=== PATIENT | male | born 1925 | race Caucasian/White ===

== ENCOUNTER → 2017-03-11 | Outpatient (CLI) | payer OTHER, BC ==
[~2017-03-11] MED LIST: ATEN50TA PO; BISA-16 PO; DIPH25CA5 PO; FINA5TAB4 PO; FLM4 PO; FURO-85 PO; LDXCR60 EXT; LOSA1TAB PO; METO25TA56 PO; MRLP527 PO; NRV5 PO; POTA10CA28 PO; PRS5 PO; RIVA1TAB4 PO; SIMV-151 PO; SIMV20TA5 PO; TAMS0.4C59 PO; TNR25 PO; TNR50 PO
--- NOTE | 2017-03-11 14:14 | DIAGNOSTIC IMAGING REPORT ---
ULTRASOUND OF THE CAROTID ARTERIES CLINICAL HISTORY: Carotid bruit. COMPARISON STUDY: Carotid artery ultrasound dated 05/09/2012. TECHNIQUE: Real-time, grayscale, and color Doppler sonography of the carotid arteries is performed. Images are reviewed in the transverse and longitudinal planes. FINDINGS: Blood pressure in the right arm measures 193/94 and blood pressure in the left arm measures 188/93. The carotid arteries are patent bilaterally and demonstrate antegrade flow. There is mild to moderate echogenic shadowing atherosclerotic plaque seen bilaterally. Normal doppler arterial waveforms are seen throughout. Velocity measurements are listed below. Common carotid peak systolic velocity (cm/sec): RIGHT: 52 LEFT: 41 ICA proximal peak systolic velocity (cm/sec): RIGHT: 60 LEFT: 72 ICA mid peak systolic velocity (cm/sec): RIGHT: 45 LEFT: 61 ICA distal peak systolic velocity (cm/sec): RIGHT: 57 LEFT: 117 ICA/CC peak systolic ratio: RIGHT: 1.2 LEFT: 2.9 Antegrade flow was shown in the vertebral arteries. The external carotid arteries are patent. IMPRESSION: 1. Atherosclerotic plaque with no sonographic evidence of hemodynamically significant stenosis in the right or left carotid arterial system. 2. Antegrade flow is shown in the vertebral arteries. 3. Hypertension as documented above. Electronically signed by: Randy Lemus M.D. 03/11/2017 2:13 PM Dictated Date/Time: 03/11/2017 2:11 PM
== END | disposition home or self-care (01) ==
LOC: C.ULTR 12:42
PROVIDERS: ATTEND Internal Medicine
DX: R09.89 Other specified symptoms and signs involving the circulatory and respiratory systems (principal); R42 Dizziness and giddiness; I10 Essential (primary) hypertension

== ENCOUNTER → 2017-05-09 | Outpatient (CLI) | payer OTHER, BC ==
[~2017-05-09] MED LIST changes: -DIPH25CA5 PO; -FURO-85 PO; -LDXCR60 EXT; -LOSA1TAB PO; -METO25TA56 PO; -POTA10CA28 PO; -TNR25 PO
[2017-05-09 12:17] LABS: BASO % 0.7 %; BASO ABS # 0.04 K/uL (0-0.2); COMPLETE YES; EOS % 2.2 %; HEMATOCRIT 49.6 % (42-52); IG% 0.2 %; LYMPH % 14.6 %; LYMPH ABS # 0.86 K/uL (1.2-3.4); MEAN CELL VOLUME 96.3 fL (80-100); MEAN CORPUSCULAR HEMOGLOBIN 32.8 pg (25-34); MEAN CORPUSCULAR HGB CONC 34.1 g/dl (32-36); MEAN PLATELET VOLUME 10.9 fL (7.4-10.4); MONO % 12.5 %; NEUT % 69.8 %; PLATELET COUNT 107 K/uL (130-400); RED BLOOD COUNT 5.15 M/uL (4.7-6.1); WHITE BLOOD COUNT 5.91 K/uL (4.8-10.8)
[2017-05-09 12:22] LABS: ESTIMATED AVERAGE GLUCOSE 114 mg/dl; HA1C FLAG Normal (Normal)
[2017-05-09 12:33] LABS: ALB/GLOB RATIO 1.1 (0.9-2); ALKALINE PHOSPHATASE 85 U/L (45-117); BLOOD UREA NITROGEN 21 mg/dl (7-18); BUN/CREATININE RATIO 17.2 (10-20); CALCIUM 9.7 mg/dl (8.5-10.1); CARBON DIOXIDE 25 mmol/L (21-32); CHLORIDE 109 mmol/L (98-107); GLUCOSE 109 mg/dl (70-99); HDL CHOLESTEROL 42 mg/dl; POTASSIUM 4.5 mmol/L (3.5-5.1); SODIUM 140 mmol/L (136-145)
[2017-05-09 12:35] LABS: ALT/SGPT 45 U/L (12-78); AST/SGOT 21 U/L (15-37); CHOLESTEROL 116 mg/dl (0-200); CHOLESTEROL/HDL RATIO 2.8; TRIGLYCERIDES 75 mg/dl (0-150); VERY LOW DENSITY LIPOPROT CALC 15 mg/dl
== END | disposition home or self-care (01) ==
LOC: C.LABSPEC 12:04
PROVIDERS: ATTEND Internal Medicine
DX: I25.10 Atherosclerotic heart disease of native coronary artery without angina pectoris (principal); E78.5 Hyperlipidemia, unspecified; R73.9 Hyperglycemia, unspecified

== ENCOUNTER 2017-05-21 14:28 | Inpatient (IN) | payer OTHER, BC ==
[~2017-05-21] VITALS: Ht 172.7 cm; Wt 66.8 kg
[~2017-05-21 14:28] MED LIST changes: -FLM4 PO; -MRLP527 PO; -NRV5 PO; -PRS5 PO; -RIVA1TAB4 PO; -SIMV-151 PO; -TNR50 PO
--- NOTE | 2017-05-21 15:09 | DIAGNOSTIC IMAGING REPORT ---
CHEST ONE VIEW PORTABLE HISTORY: EVALUATE RESPIRATORY DISTRESS.DYSPNEA COMPARISON: Chest 05/14/2014. FINDINGS: The patient is slightly rotated. No pneumothorax. The heart remains mildly enlarged. There are poststernotomy changes. Patchy bibasilar densities with mild perihilar vascular prominence. No definite pleural effusions. IMPRESSION: Patchy bibasilar densities with perihilar vascular prominence. This could be due to a bibasilar pneumonia or developing pulmonary edema. Electronically signed by: Robbie Gonzalez M.D. 05/21/2017 3:07 PM Dictated Date/Time: 05/21/2017 3:06 PM
[2017-05-21] MEDS ORDERED: MRLP527 PO (15:26)
[2017-05-21] MEDS ORDERED: FLM4 PO (15:26)
[2017-05-21] MEDS ORDERED: SIMV-151 PO (15:26)
[2017-05-21] MEDS ORDERED: PRS5 PO (15:26)
[2017-05-21] MEDS ORDERED: TNR50 PO (15:26)
[2017-05-21 15:33] LABS: BASO % 0.7 %; BASO ABS # 0.04 K/uL (0-0.2); COMPLETE YES; EOS % 2.4 %; HEMATOCRIT 51.5 % (42-52); IG% 0.2 %; LYMPH % 18.6 %; MEAN CELL VOLUME 97.2 fL (80-100); MEAN PLATELET VOLUME 10.7 fL (7.4-10.4); MONO % 9.5 %; NEUT % 68.6 %; PLATELET COUNT 104 K/uL (130-400); WHITE BLOOD COUNT 5.91 K/uL (4.8-10.8)
[2017-05-21 15:54] LABS: ALT/SGPT 75 U/L (12-78); AST/SGOT 37 U/L (15-37); BLOOD UREA NITROGEN 19 mg/dl (7-18); BUN/CREATININE RATIO 16.9 (10-20); CARBON DIOXIDE 28 mmol/L (21-32); CHLORIDE 109 mmol/L (98-107); GLUCOSE 110 mg/dl (70-99); POTASSIUM 4.7 mmol/L (3.5-5.1); SODIUM 140 mmol/L (136-145)
[2017-05-21 15:59] LABS: ALB/GLOB RATIO 1.2 (0.9-2); ALKALINE PHOSPHATASE 91 U/L (45-117); CKMB/CK RATIO 3.2 (0-3.0)
[2017-05-21] MEDS ORDERED: ATROPINE SULFATE 0.1 MG/ML 5ML SYR ONE (16:02)
[2017-05-21 16:16] LABS: MAGNESIUM 2.3 mg/dl (1.8-2.4)
[2017-05-21] MEDS ORDERED: ACETAMINOPHEN 325 MG TAB PO PRN (17:00)
[2017-05-21] MEDS ORDERED: ATROPINE SO4 1 MG/ML 1ML VIAL IM PRN (17:00)
--- NOTE | 2017-05-21 17:13 | EMERGENCY ROOM VISIT NOTE ---
History Report prepared by Ollie: Madhu Frazier Under the Supervision of: Dr. Robin Davila M.D. First contact with patient: 14:50 Chief Complaint: SHORTNESS OF BREATH Stated Complaint: SHORTNESS OF BREATH, NOT SLEEPING WELL Nursing Triage Summary: triage note: pt reports "i can't get enough air." pt denies any pain. pt reports shortness of breath x 1 week. History of Present Illness The patient is a 89 year old male who presents to the Emergency Room with complaints of shortness of breath that began 1 week ago. He states that he feels as if he cannot get enough air into his lungs. The patient's shortness of breath worsens with exertion. He notes that he has not been sleeping very well as of late. He has chronic left leg swelling that is at baseline. He has been having occasional diarrhea as well. Pt denies LOC, headache, fevers, chills, diaphoresis, visual changes, neck pain, chest pain, nausea, vomiting, abdominal pain, back pain, melena, hematochezia, urinary symptoms, numbness, weakness, lymphadenopathy, rash, or other complaints. He denies any Lasix use. He has a history of chronic coronary artery disease and a resolved CABG procedure. Source of History: patient Onset: 1 week ago Position: other (Respiratory System) Symptom Intensity: moderate Quality: other (Shortness of breath) Timing: worsening Modifying Factors (Worsening): exertion Associated Symptoms: + diarrhea Review of Systems See HPI for pertinent positives and negatives. A total of ten systems were reviewed and were otherwise negative. Past Medical & Surgical Medical Problems: (1) CAD (coronary artery disease) (2) Hypertension Nos (3) PROFOUND BRADYCARDIA,ATRIAL FLUTTER, CAD (4) Pure Hypercholesterolem (5) Unilat Inguinal Hernia Surgical Problems: (1) Hx of CABG Family History Omitted secondary to age. Social History Smoking Status: Never Smoker Smokeless Tobacco Use: No Alcohol Use: none Drug Use: none Marital Status: Housing Status: lives alone Occupation Status: retired Current/Historical Medications Scheduled Atenolol (Atenolol), 50 MG PO QAM Finasteride (Finasteride), 5 MG PO QAM Simvastatin (Simvastatin), 20 MG PO QPM Tamsulosin HCl (Tamsulosin HCl), 0.4 MG PO QAM Scheduled PRN Polyethylene (Polyethylene Glycol 3350), 17 GM PO DAILY PRN for Constipation Allergies Coded Allergies: No Known Allergies (Verified , 05/14/14) Physical Exam Vital Signs Date Time Temp Pulse Resp B/P (MAP) Pulse Ox O2 Delivery O2 Flow Rate FiO2 05/21/17 16:37 39 18 98/54 96 Room Air 05/21/17 15:53 39 12 95 05/21/17 15:48 38 15 97 05/21/17 15:43 40 15 97 05/21/17 15:39 38 05/21/17 15:38 54 17 93 05/21/17 15:35 94 Room Air 05/21/17 15:35 94 Room Air 05/21/17 15:33 62 94 05/21/17 15:28 41 15 98 05/21/17 14:34 97 Room Air 05/21/17 14:33 36.7 89 22 206/82 97 Room Air Physical Exam GENERAL: Awake, alert, tired appearing, in no distress HENT: Normocephalic, atraumatic. Oropharynx unremarkable. EYES: Normal conjunctiva. Sclera non-icteric. NECK: Supple. No nuchal rigidity. FROM. No JVD. RESPIRATORY: Clear to auscultation. CARDIAC: Bradycardic rate, normal rhythm. Extremities warm and well perfused. Pulses equal. ABDOMEN: Soft, non-distended. No tenderness to palpation. No rebound or guarding. No masses. RECTAL: Deferred. MUSCULOSKELETAL: Chest examination reveals no tenderness. The back is symmetrical on inspection without obvious abnormality. There is no CVA tenderness to palpation. No joint edema. LOWER EXTREMITIES: 2+ left leg edema. 1+ right leg edema. Left greater than right. No discoloration. NEURO: Normal sensorium. No sensory or motor deficits noted. SKIN: No rash or jaundice noted. Medical Decision & Procedures ER Provider Diagnostic Interpretation: Radiology results as stated below per my review and radiologist interpretation: CHEST ONE VIEW PORTABLE HISTORY: EVALUATE RESPIRATORY DISTRESS.DYSPNEA COMPARISON: Chest 05/14/2014. FINDINGS: The patient is slightly rotated. No pneumothorax. The heart remains mildly enlarged. There are poststernotomy changes. Patchy bibasilar densities with mild perihilar vascular prominence. No definite pleural effusions. IMPRESSION: Patchy bibasilar densities with perihilar vascular prominence. This could be due to a bibasilar pneumonia or developing pulmonary edema. Electronically signed by: Robbie Gonzalez M.D. 05/21/2017 3:07 PM Dictated Date/Time: 05/21/2017 3:06 PM Laboratory Results 05/21/17 15:05 Red Blood Count 5.30, Mean Corpuscular Volume 97.2, Mean Corpuscular Hemoglobin 33.0, Mean Corpuscular Hemoglobin Concent 34.0, Mean Platelet Volume 10.7, Neutrophils (%) (Auto) 68.6, Lymphocytes (%) (Auto) 18.6, Monocytes (%) (Auto) 9.5, Eosinophils (%) (Auto) 2.4, Basophils (%) (Auto) 0.7, Neutrophils # (Auto) 4.06, Lymphocytes # (Auto) 1.10, Monocytes # (Auto) 0.56, Eosinophils # (Auto) 0.14, Basophils # (Auto) 0.04 05/21/17 15:05 Test 05/21/17 15:05 05/21/17 15:27 05/21/17 16:52 05/21/17 16:58 White Blood Count 5.91 K/uL (4.8-10.8) Red Blood Count 5.30 M/uL (4.7-6.1) Hemoglobin 17.5 g/dL (14.0-18.0) Hematocrit 51.5 % (42-52) Mean Corpuscular Volume 97.2 fL (80-100) Mean Corpuscular Hemoglobin 33.0 pg (25-34) Mean Corpuscular Hemoglobin Concent 34.0 g/dl (32-36) Platelet Count 104 K/uL (130-400) Mean Platelet Volume 10.7 fL (7.4-10.4) Neutrophils (%) (Auto) 68.6 % Lymphocytes (%) (Auto) 18.6 % Monocytes (%) (Auto) 9.5 % Eosinophils (%) (Auto) 2.4 % Basophils (%) (Auto) 0.7 % Neutrophils # (Auto) 4.06 K/uL (1.4-6.5) Lymphocytes # (Auto) 1.10 K/uL (1.2-3.4) Monocytes # (Auto) 0.56 K/uL (0.11-0.59) Eosinophils # (Auto) 0.14 K/uL (0-0.5) Basophils # (Auto) 0.04 K/uL (0-0.2) RDW Standard Deviation 47.5 fL (36.4-46.3) RDW Coefficient of Variation 13.4 % (11.5-14.5) Immature Granulocyte % (Auto) 0.2 % Immature Granulocyte # (Auto) 0.01 K/uL (0.00-0.02) Anion Gap 3.0 mmol/L (3-11) Est Creatinine Clear Calc Drug Dose 44.0 ml/min Estimated GFR () 68.6 Estimated GFR (Non- 59.2 BUN/Creatinine Ratio 16.9 (10-20) Calcium Level 10.0 mg/dl (8.5-10.1) Magnesium Level 2.3 mg/dl (1.8-2.4) Total Bilirubin 1.1 mg/dl (0.2-1) Aspartate Amino Transf (AST/SGOT) 37 U/L (15-37) Alanine Aminotransferase (ALT/SGPT) 75 U/L (12-78) Alkaline Phosphatase 91 U/L (45-117) Total Creatine Kinase 41 U/L (39-308) Creatine Kinase MB 1.3 ng/ml (0.5-3.6) Creatine Kinase MB Ratio 3.2 (0-3.0) Troponin I < 0.015 ng/ml (0-0.045) Pro-B-Type Natriuretic Peptide 3793 pg/ml (0-1800) Total Protein 7.2 gm/dl (6.4-8.2) Albumin 3.9 gm/dl (3.4-5.0) Globulin 3.3 gm/dl (2.5-4.0) Albumin/Globulin Ratio 1.2 (0.9-2) Bedside Lactic Acid Venous 0.85 mmol/L (0.90-1.70) Activated Partial Thromboplast Time 26.0 SECONDS (21.0-31.0) Partial Thromboplastin Ratio 1.0 Laboratory results reviewed by me ECG Indication: SOB/dyspnea Rate (beats per minute): 37 Rhythm: atrial flutter, other (Profound Bradycardia) Findings: no acute ischemic change, other (Variable block) Comparison ECG Date: 07 Aug 2012 Change: Atrial flutter is new. ED Course 1450: The patient was evaluated in room C1. A complete history and physical exam was performed. 1555: Upon reexamination, the patient was resting. I discussed the test results and treatment plan with him. The patient will be evaluated by Dr. Dain Coppola, for further management. He has already spoken with Cardiology about the patient. 1602: Ordered Atropine Sulfate 0.5 mg .ROUTE 1635: I spoke with Dr. Pfeiffer - Cardiology, about the patient's case at this time. Medical Decision Triage Nursing notes reviewed. The patient's presentation and history were concerning for SOB. Etiologies such as pneumonia, COPD, reactive airway disease, CHF, cardiac ischemia, pulmonary embolism, pneumothorax, musculoskeletal, infections, gastrointestinal, as well as others were entertained. The patient was evaluated. Physical examination he was found to be profoundly bradycardic. ECG was performed he was in new onset A. fib flutter with slow response and variable block. His CBC, chemistry panel, cardiac markers and magnesium were unremarkable. His BNP was elevated. Chest x-ray did show some pulmonary edema. A pads are placed. The patient was hemodynamically tolerating the bradycardia very well. I did discuss case with his primary physician, Dr. Jonh Yeh. He had already consulted with cardiology, Dr. Pfeiffer. I did discuss the case with Dr. Pfeiffer and Dr. Jonh Yeh in the emergency department. The patient will be admitted for further management. Medication Reconcilliation Current Medication List: was personally reviewed by me Blood Pressure Screening Patient's blood pressure: Elevated blood pressure Blood pressure disposition: Referred to PCP Consults Time Called: 1550 Consulting Physician: Dr. Dain Coppola Returned Call: 1555 Discussed the patient's case. The patient will be evaluated for further treatment and disposition. Additional Consults: Time Called: 1630 Consulted Physician: Dr. Kentrell Mckeon Returned Call: 1635 Additional Comments: We discussed the patient's case at this time. Impression Primary Impression: New onset atrial flutter Additional Impressions: Bradycardia SOB (shortness of breath) Scribe Attestation The scribe's documentation has been prepared under my direction and personally reviewed by me in its entirety. I confirm that the note above accurately reflects all work, treatment, procedures, and medical decision making performed by me. Departure Information Dispostion Being Evaluated By Hospitalist Referrals Jonh Gonzalez M.D. (PCP) Patient Instructions My [facility] Problem Qualifiers
--- NOTE | 2017-05-21 17:14 | Cardiology Consultation ---
Cardiology Consultation Date of Consultation: May 21, 2017. Requesting Physician: Yolanda Reason for Consultation: bradycardia Pt evaluation today including: conversation w/ patient, conversation w/ family , physical exam, chart review, lab review, review of studies, review of inpatient medication list, conversation w/ attending History of Present Illness The patient is an 89-year-old gentleman with a history of coronary artery disease who reports approximately 2 weeks worth of progressive dyspnea. He states initially this was fairly mild and exertional in nature but later became more severe and present at rest. In fact for the past 2 nights the patient states that he has had difficulty sleeping due to breathing trouble. He has had to sit upright or walk around due to breathing difficulty. He has had some episodes of mild dizziness. He has a fairly transient and not severe. He has not felt presyncopal. He has not suffered a syncopal episode. He has not been aware of any rapid pulse. He has not been aware of any palpitations. He denies any symptoms of chest discomfort. He has some chronic lower extremity edema which he does not feel is worse recently. He has not report any significant dietary indiscretion or change in diet. He has not noticed any significant weight gain. In general he is an active individual who lives alone. He is able perform routine activity without significant limitation. Denies any other recent constitutional symptoms such as fevers or chills. Did not report a cough. He states he has been eating normally. He did not report any change in his bowel or bladder habits. He has not reported any melena or blood in his stool. Based on the progressive in more severe nature of his symptoms the patient presented to his primary care physician's office today where he he was directed to the [facility] Emergency Room. There he was discovered to have significant bradycardia and atrial flutter. Past Medical/Surgical History Coronary artery disease Benign prostatic hypertrophy Hard of hearing Past surgical history Coronary artery bypass grafting in [address] [facility]. 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 He has remote history of tobacco use. He occasionally smokes a cigar. He currently lives alone and independently. Review of Systems Constitutional: + see HPI Respiratory: + see HPI Cardiac: + see HPI Abdomen: + see HPI Male : + see HPI Neurologic: + see HPI Heme: + see HPI Endo: + see HPI Skin: + see HPI All Other Systems: Reviewed and Negative Allergies Coded Allergies: No Known Allergies (Verified , 05/14/14) Medications Current Inpatient Medications Medications (Trade) Dose Ordered Sig/Vonda Route Start Time Stop Time Status Last Admin Dose Admin Heparin Sodium (Porcine) (Heparin Sq 5000 Unit/0.5ml) 5,000 unit Q12 SQ 05/21/17 21:00 06/20/17 20:59 UNV Acetaminophen (Tylenol Tab) 650 mg Q4H PRN PO 05/21/17 17:00 06/20/17 16:59 UNV Finasteride (Proscar Tab) 5 mg QAM PO 05/22/17 09:00 06/21/17 08:59 UNV Simvastatin (Zocor Tab) 20 mg QPM PO 05/21/17 21:00 06/20/17 20:59 UNV Tamsulosin HCl (Flomax Cap) 0.4 mg QAM PO 05/22/17 09:00 06/21/17 08:59 UNV Atropine Sulfate (Atropine Sulfate 1MG/Ml Inj) 1 mg PRN PRN IM 05/21/17 17:00 06/20/17 16:59 UNV Physical Exam Vital Signs Past 12 Hours Date Time Temp Pulse Resp B/P (MAP) Pulse Ox O2 Delivery O2 Flow Rate FiO2 05/21/17 16:37 39 18 98/54 96 Room Air 05/21/17 15:53 39 12 95 05/21/17 15:48 38 15 97 05/21/17 15:43 40 15 97 05/21/17 15:39 38 05/21/17 15:38 54 17 93 05/21/17 15:35 94 Room Air 05/21/17 15:35 94 Room Air 05/21/17 15:33 62 94 05/21/17 15:28 41 15 98 05/21/17 14:34 97 Room Air 05/21/17 14:33 36.7 89 22 206/82 97 Room Air The patient is alert and oriented. Mood and affect appeared normal. He answered all questions appropriately. He was hard of hearing. Some supplemental history was provided by his daughter who was present for the interview. HEENT: Pupils are equal and reactive to light and accommodation. Extraocular movements are intact. The sclerae are anicteric. Neuro: Cranial nerves intact Neck: Patient's neck is supple. He has palpable carotid pulses bilaterally without bruits on auscultation. There was mild jugular venous distention. The thyroid is not enlarged. Lungs: He had rales at the bases bilaterally. He has good air movement without use of accessory muscles. No wheezes or rhonchi. Cardiac: Heart demonstrates an irregular rate and rhythm. Normal S1 and S2. No murmurs on examination. Pulses: The patient has palpable radial pulses bilaterally that are equal in intensity Extremities: There was no evidence of hypoperfusion. There is no cyanosis or clubbing. He has mild bilateral peripheral edema in lower extremities. There was some trophic changes. Skin: I did not appreciate any rashes on examination today. He did have some ecchymoses Data Laboratory Results: Last 24 Hours Test 05/21/17 15:05 05/21/17 15:27 05/21/17 16:52 White Blood Count 5.91 K/uL Red Blood Count 5.30 M/uL Hemoglobin 17.5 g/dL Hematocrit 51.5 % Mean Corpuscular Volume 97.2 fL Mean Corpuscular Hemoglobin 33.0 pg Mean Corpuscular Hemoglobin Concent 34.0 g/dl Platelet Count 104 K/uL Mean Platelet Volume 10.7 fL Neutrophils (%) (Auto) 68.6 % Lymphocytes (%) (Auto) 18.6 % Monocytes (%) (Auto) 9.5 % Eosinophils (%) (Auto) 2.4 % Basophils (%) (Auto) 0.7 % Neutrophils # (Auto) 4.06 K/uL Lymphocytes # (Auto) 1.10 K/uL Monocytes # (Auto) 0.56 K/uL Eosinophils # (Auto) 0.14 K/uL Basophils # (Auto) 0.04 K/uL RDW Standard Deviation 47.5 fL RDW Coefficient of Variation 13.4 % Immature Granulocyte % (Auto) 0.2 % Immature Granulocyte # (Auto) 0.01 K/uL Sodium Level 140 mmol/L Potassium Level 4.7 mmol/L Chloride Level 109 mmol/L Carbon Dioxide Level 28 mmol/L Anion Gap 3.0 mmol/L Blood Urea Nitrogen 19 mg/dl Creatinine 1.10 mg/dl Est Creatinine Clear Calc Drug Dose 44.0 ml/min Estimated GFR () 68.6 Estimated GFR (Non- 59.2 BUN/Creatinine Ratio 16.9 Random Glucose 110 mg/dl Calcium Level 10.0 mg/dl Magnesium Level 2.3 mg/dl Total Bilirubin 1.1 mg/dl Aspartate Amino Transf (AST/SGOT) 37 U/L Alanine Aminotransferase (ALT/SGPT) 75 U/L Alkaline Phosphatase 91 U/L Total Creatine Kinase 41 U/L Creatine Kinase MB 1.3 ng/ml Creatine Kinase MB Ratio 3.2 Troponin I < 0.015 ng/ml Pro-B-Type Natriuretic Peptide 3793 pg/ml Total Protein 7.2 gm/dl Albumin 3.9 gm/dl Globulin 3.3 gm/dl Albumin/Globulin Ratio 1.2 Bedside Lactic Acid Venous 0.85 mmol/L Imaging: Chest x-ray revealed evidence of mild pulmonary vascular congestion EKG: Atrial flutter with slow ventricular response Assessment & Plan 1. Dyspnea: Patient's main concern was progressive dyspnea both with exertion and later at rest. He had symptoms consistent with orthopnea or paroxysmal nocturnal dyspnea. This is likely related to both a transition to atrial flutter and his slow ventricular response. Unclear whether he has an element of poor LV function as well. He has a significant elevated N terminal proBNP. At this point would seem reasonable to affect a diuresis for symptom improvement. We will obtain an echocardiogram in order to evaluate his LV function and address the rhythm issue as noted below. 2. Atrial flutter: Patient does not have a history of atrial flutter. It is unclear when he transition to this rhythm. It may have precipitated some of his symptoms recently He Has an unusually slow pulse given the atrial arrhythmia. He has not been anticoagulated. There is no indication for urgent cardioversion. We will obtain an echocardiogram as noted above. We will determine whether he requires cardioversion or I change back to sinus rhythm based on his clinical course. One concern would be very slow heart rate should he transition back to sinus rhythm. 3. Bradycardia: This unusual in the setting of atrial flutter. Patient is on a moderate dose of atenolol which will be held. He likely has some symptoms related to the bradycardia as he described an element of dizziness and has pulmonary vascular congestion. However, I do not see an urgent indication for temporary pacing. Hopefully with elimination of his beta-blockade will see a gradual improvement in his pulse to the point where he would not require permanent pacing. Should the patient experience significant bradycardia to the point where he is hemodynamically compromised and urgent intervention would involve either an isoproterenol or dopamine infusion. Glucagon could also be administered for reversal of beta-blockade. 4. Coronary artery disease: Patient is not currently reporting symptoms of angina or coronary insufficiency. His bypass surgery was quite remote. He is not recall having chest pain or other symptoms leading up to his bypass. He cannot recall ever having a heart attack. He is on relatively low-dose simvastatin and would likely benefit from a daily aspirin as well. However, in the acute setting we may elect to affect systemic anticoagulation and aspirin can be held.
[2017-05-21 17:46] VITALS: BP 170/65; PULSE 40; TEMP 36.5; O2SAT 97
[2017-05-21] MEDS ORDERED: FUROSEMIDE INJ 20 MG in SYRINGE 0 ML IV ONE (18:00)
[2017-05-21 18:19] VITALS: O2SAT 97; Ht 172.7 cm; Wt 66.8 kg
[2017-05-21 19:03] LABS: CKMB/CK RATIO 3.8 (0-3.0)
[2017-05-21 19:11] LABS: INR 1.2 (0.9-1.1); PROTHROMBIN TIME (PATIENT) 12.7 SECONDS (9.0-12.0)
[2017-05-21 20:01] LABS: URINE APPEARANCE CLEAR (CLEAR); URINE BILIRUBIN NEG (NEG); URINE COLOR YELLOW; URINE EPITHELIAL CELL AUTO 0-5 /lpf (0-5); URINE NITRITE NEG (NEG); URINE SPECIFIC GRAVITY 1.009 (1.000-1.030); UROBILINOGEN NEG (NEG)
[2017-05-21 20:13] LABS: MANUAL MICROSCOPIC REQUIRED? NO; REVIEW REQ? NO
[2017-05-21 20:54] VITALS: BP 162/70
[2017-05-21] MEDS: HEPARIN SOD 5000 UNIT/0.5 ML CARP SQ SCH (20:55)
[2017-05-21] MEDS: SIMVASTATIN 20 MG TAB PO SCH (20:55)
[2017-05-21 23:20] VITALS: BP 190/82; PULSE 36; TEMP 36.4; O2SAT 98
[2017-05-21 23:28] VITALS: BP 180/86
--- NOTE | 2017-05-21 23:36 | History and Physical ---
History & Physical Date of Service May 21, 2017. History & Physical ADMISSION DATE: 05/21/2017 CHIEF COMPLAINT: 89-year-old male admitted through the emergency room with atrial flutter and profound bradycardia with a ventricular rate in the 30s. He has been complaining of shortness of breath. PRESENT ILLNESS: Patient with coronary artery disease. He is status post four-vessel coronary artery bypass graft in 1997. He had a MEDRANO to LAD, saphenous vein graft from the aorta to the posterior descending artery first circumflex marginal and diagonal branch. He is also treated for arterial hypertension, hypercholesterolemia, known carotid artery disease which has not required any intervention. Patient stop in the office today with his daughter. Complaining of shortness of breath. He had no chest pain. He was ambulating. This has been going on for many days and it has been progressive. Recommended that his daughter dries into the emergency room. He was evaluated. He was found to be in atrial flutter. His ventricular response was in the 30s and at time decreased to the 20s. During all this time he remained awake and alert. He had no presyncope. He had no headache. No lightheadedness. No chest pain. He has been complaining of shortness of breath. No cough no sputum no hemoptysis. No abdominal pain. No nausea or vomiting. No problem with his bowel movements. He does have urinary frequency. He has swelling in both ankles. I saw the patient in the emergency room. He was admitted to PCU. Prior to that one eye got the information from the emergency room I did contact Dr. Pfeiffer and requested a cardiology consultation. He did see the patient in the emergency room. There was no indication for placement of a temporary pacer . The plan was to go head and admit him.stop his atenolol . Decide on the need for a permanent pacer. PAST MEDICAL HISTORY: * coronary artery disease. In 1997 he was experiencing symptoms consistent with angina pectoris. A stress test was done. Was abnormal. He was transferred to [facility]. He underwent a four-vessel coronary artery bypass graft with MEDRANO to LAD and saphenous vein graft from the aorta to the posterior descending artery, marginal artery and diagonal branch. * Arterial hypertension. Long-standing. * Hypercholesterolemia. Treated. * Enlargement of the prostate * Carotid artery disease. His last carotid ultrasound was done on 03/11/2017 showed evidence of atherosclerotic plaque with no evidence of significant stenosis. * Status post inguinal hernia repair many years ago SOCIAL HISTORY: He is a . He had 2 children. Denies any smoking. At one time in the remote past he did smoke cigars. Denied any alcohol. No excessive cough zero soft drinks. He is retired. He had a [employer] business. He retired in 1988 FAMILY HISTORY: His father at age 43 had myocardial infarction. He has 2 brothers and one sister. History is significant for coronary artery disease. Children are well. ALLERGIES: None CURRENT MEDICATIONS: * atenolol 50 mg p.o. daily * Simvastatin 20 mg daily * Tamsulosin 0.4 mg daily * Finasteride 5 mg daily * Aspirin 81 mg daily * Nitrostat 0.4 mg sublingually p.r.n. REVIEW OF SYSTEMS: He denied any headache. He has been complaining of recurrent dizziness. No earache sore throat or neck pain. Denied any chest pain he has been complaining of shortness of breath which has been progressive. No abdominal pain no nausea no vomiting. No problem with his bowel movements he does have frequent urination. No pain in his back. He does have increase lower leg and ankle edema. EXAMINATION: General : Well developed. Well nourished. No distress. Weight 71.2 kg, height 172.7 cm, BMI 23.9. Vital Signs : Blood pressure on arrival to the emergency room was 206/82, pulse 41, respiration 15, temperature 36.7, oxygen saturation 97% on room air Skin : Warm and dry. No rash.benign keratosis HEENT :He wears glasses. Decreased hearing. Has hearing aids. Upper dentures. Neck : Supple. No adenopathy. No thyromegaly. No JVD. Normal carotid pulses. Bilateral carotid bruits.Much more pronounced on the left side Chest : Normal.Surgical scar Heart markedly bradycardic. Irregular heart sounds. 2/6 systolic murmur. Lungs decreased breath sounds at the bases Abdomen : Soft nontender without any organomegaly or masses. Active bowel sounds. Back : No spinal or CVA tenderness. Extremities: 1+ edema. No clubbing no cyanosis. Absent right dorsalis pedis pulse. Neurological examination : Alert and oriented without evidence of any lateralized deficit. LABORATORY TESTS: WBC count 5910, hemoglobin 17.5, hematocrit 51.5, platelet count 10 4000. Prothrombin time 12.7, INR 1.2, PTT 26. Sodium 140, potassium 4.7, chloride 105 , CO2 28, BUN 19, creatinine 1.1, glucose 110, calcium 10, magnesium 2.3, total bilirubin 1.1, AST 37 ALT 75, alkaline phosphatase 91, total CK 41, MB fraction 1.3, troponin I less than 0.015, pro BNP 3793, total protein 7.2, albumin 3.9, TSH 1.910, T4-5 0.7. Chest x-ray showed evidence of congestive heart failure Electrocardiogram showed atrial flutter with markedly depressed ventricular response in the 30s. ASSESSMENT: * profound bradycardia * Atrial flutter * Coronary artery disease * Arterial hypertension * Hypercholesterolemia * Atherosclerosis * Enlargement of the prostate PLAN: patient was admitted to PCU with telemetry. Resuscitation level I. Cardiology consultation as noted. Gentle diuresis. Ordered one dose of Lasix 20 mg IV. All his laboratory tests were ordered. Cardiac isoenzymes. Will check an echocardiogram in the morning. Will monitor his rhythm and rate. As noted there was no immediate indication for temporary pacing. Dr. Pfeiffer will decide on the need for permanent pacing. His condition and plan were discussed with the patient and his daughter who was at his bedside.
[2017-05-21] MEDS ORDERED: AMLODIPINE BESYLATE 5 MG TAB PO ONE (23:45)
[2017-05-22] VITALS (9 sets, daily range): BP systolic 142–203; BP diastolic 68–96; PULSE 60–64; TEMP 36.4–37; O2SAT 94–96
[2017-05-22] MEDS ORDERED: NURSING VERBAL MED ORDER ONE (04:15)
[2017-05-22] MEDS ORDERED: HydrALAZINE HCL 20 MG/ML VIAL IV. ONE (04:30)
[2017-05-22 05:59] LABS: BASO % 0.6 %; BASO ABS # 0.04 K/uL (0-0.2); COMPLETE YES; EOS % 2.3 %; HEMATOCRIT 51.3 % (42-52); IG% 0.5 %; LYMPH % 18.1 %; LYMPH ABS # 1.12 K/uL (1.2-3.4); MEAN CORPUSCULAR HEMOGLOBIN 32.6 pg (25-34); MEAN CORPUSCULAR HGB CONC 34.3 g/dl (32-36); MEAN PLATELET VOLUME 10.2 fL (7.4-10.4); MONO % 9.4 %; NEUT % 69.1 %; PLATELET COUNT 107 K/uL (130-400)
[2017-05-22 06:35] LABS: BLOOD UREA NITROGEN 18 mg/dl (7-18); BUN/CREATININE RATIO 16.1 (10-20); CALCIUM 9.7 mg/dl (8.5-10.1); CARBON DIOXIDE 24 mmol/L (21-32); CHLORIDE 108 mmol/L (98-107); GLUCOSE 104 mg/dl (70-99); SODIUM 139 mmol/L (136-145)
--- NOTE | 2017-05-22 08:55 | ECHOCARDIOGRAM REPORT ---
*NOTICE TO RECEIVING CONSTITUTION PARTY AGENCY This information is strictly Confidential and protected under [place] law. [place] law prohibits you from making any further disclosure of this information unless further disclosure is expressly permitted by the written consent of the person to whom it pertains or is authorized by law. A general authorization for the release of medical or other information is not sufficient for this purpose. Hospital accepts no responsibility if the information is made available to any other person, INCLUDING THE PATIENT. Interpretation Summary * Name: JEROME SIFUENTES Study Date: 05/22/2017 06:42 AM BP: 168/76 mmHg * Patient Location: C.2T\S\E216\S\1 HR: 61 * : 1925 (M/d/yyyy) Gender: Male Height: 68 in * Age: 89 yrs Ethnicity: CA Weight: 156 lb * Ordering Physician: Jonh Gonzalez * Referring Physician: Self, Referred * Performed By: Shannon Jacques RDCS * * Reason For Study: A-Flutter * BSA: 1.8 m2 * -- Conclusions -- * There is mild asymmetric left ventricular hypertrophy. * Left ventricular systolic function is normal. * The right ventricular systolic function is borderline reduced. * Right ventricular systolic pressure is normal. Procedure Details * A complete two-dimensional transthoracic echocardiogram was performed (2D, M-mode, Doppler and color flow Doppler). Left Ventricle * The left ventricle is normal in size. * The basal septum is thickened and angulated consistent with sigmoid septum. * There is mild asymmetric left ventricular hypertrophy. * Ejection Fraction = >70 %. * Left ventricular systolic function is normal. Right Ventricle * The right ventricle is normal size. * The right ventricular systolic function is borderline reduced. Atria * The left atrial size is normal. * Right atrial size is normal. Mitral Valve * The mitral valve is grossly normal. * There is trace mitral regurgitation. Tricuspid Valve * The tricuspid valve is not well visualized. * There is trace tricuspid regurgitation. * Right ventricular systolic pressure is normal. Aortic Valve * The aortic valve is trileaflet. * Calcified non-coronary cusp * No hemodynamically significant valvular aortic stenosis. * There is no significant aortic regurgitation. Pericardium/Pleural * There is no pericardial effusion. Great Vessels * Normal inferior vena cava diameter and respiratory variation suggests normal central venous pressure. MMode 2D Measurements and Calculations IVSd 1.4 cm LVIDd 3.5 cm LVIDs 2.0 cm LVPWd 1.1 cm IVS/LVPW 1.2 FS 43.5 % EDV(Teich) 50.6 ml ESV(Teich) 12.3 ml EF(Teich) 75.7 % EDV(cubed) 42.6 ml ESV(cubed) 7.7 ml EF(cubed) 81.9 % LV mass(C)d 147.5 grams LV mass(C)dI 80.2 grams/m\S\2 SV(Teich) 38.3 ml SI(Teich) 20.8 ml/m\S\2 SV(cubed) 34.9 ml SI(cubed) 19.0 ml/m\S\2 ACS 1.6 cm LA dimension 3.8 cm asc Aorta Diam 3.2 cm LVAd ap4 19.9 cm\S\2 LVLd ap4 7.5 cm EDV(MOD-sp4) 43.2 ml EDV(sp4-el) 45.2 ml LVAs ap4 10.3 cm\S\2 LVLs ap4 6.9 cm ESV(MOD-sp4) 13.4 ml ESV(sp4-el) 13.0 ml EF(MOD-sp4) 69.0 % EF(sp4-el) 71.1 % LVAd ap2 20.2 cm\S\2 LVLd ap2 7.5 cm EDV(MOD-sp2) 44.8 ml EDV(sp2-el) 46.1 ml LVAs ap2 8.8 cm\S\2 LVLs ap2 6.7 cm ESV(MOD-sp2) 11.9 ml ESV(sp2-el) 9.9 ml EF(MOD-sp2) 73.4 % EF(sp2-el) 78.6 % LVLd %diff 0.82 % EDV(MOD-bp) 43.9 ml LVLs %diff -3.59 % ESV(MOD-bp) 12.4 ml EF(MOD-bp) 71.7 % SV(MOD-sp4) 29.8 ml SI(MOD-sp4) 16.2 ml/m\S\2 SV(MOD-sp2) 32.9 ml SI(MOD-sp2) 17.9 ml/m\S\2 SV(MOD-bp) 31.5 ml SI(MOD-bp) 17.1 ml/m\S\2 SV(sp4-el) 32.1 ml SI(sp4-el) 17.5 ml/m\S\2 SV(sp2-el) 36.2 ml SI(sp2-el) 19.7 ml/m\S\2 Doppler Measurements and Calculations MV E max jordy 112.5 cm/sec MV dec time 0.13 sec Ao V2 max 129.4 cm/sec Ao max PG 6.7 mmHg Ao max PG (full) 3.0 mmHg LV V1 max PG 3.7 mmHg LV V1 max 95.8 cm/sec PA V2 max 88.2 cm/sec PA max PG 3.1 mmHg PA acc slope 461.8 cm/sec\S\2 PA acc time 0.12 sec TR max jordy 196.7 cm/sec PA pr(Accel) 25.1 mmHg
[2017-05-22] MEDS: AMLODIPINE BESYLATE 5 MG TAB PO SCH (09:08)
[2017-05-22] MEDS: FINASTERIDE 5 MG TAB PO SCH (09:08)
[2017-05-22] MEDS: TAMSULOSIN HCL 0.4 MG CAP PO SCH (09:08)
[2017-05-22] MEDS: HEPARIN SOD 5000 UNIT/0.5 ML CARP SQ SCH ×2 (09:13→21:36)
--- NOTE | 2017-05-22 10:59 | Cardiology Follow-Up ---
Subjective Date of Service: May 22, 2017. History of Present Illness The patient feels better this morning. He did not get much rest as he was urinating for a good portion of the evening. He has difficulty saying whether his breathing is significantly improved. He did sleep slightly up rate last evening. He currently denies any sense of dizziness or lightheadedness. He has been ambulatory to the bathroom. He denies any sense of palpitation. He has no chest pain. Social History Smoking Status: Never Smoker Review of Systems Respiratory: + see HPI Cardiac: + see HPI Objective Vital Signs Past 12 Hours Date Time Temp Pulse Resp B/P (MAP) Pulse Ox O2 Delivery O2 Flow Rate FiO2 05/22/17 08:04 36.9 60 18 148/75 (99) 95 05/22/17 08:00 Room Air 05/22/17 05:13 168/76 (106) 05/22/17 04:04 200/88 (125) 05/22/17 04:03 36.6 61 17 203/96 (131) 94 Room Air 05/22/17 04:00 Room Air 05/22/17 02:29 176/84 (114) 05/21/17 23:59 Room Air 05/21/17 23:28 180/86 (117) 05/21/17 23:20 36.4 36 17 190/82 (118) 98 Room Air Last Recorded Weight-Kilograms: 67.700 Physical Exam The patient is alert and oriented. Mood and affect appeared normal. He answered all questions appropriately. He was hard of hearing. Some supplemental history was provided by his daughter who was present for the interview. HEENT: Pupils are equal and reactive to light and accommodation. Extraocular movements are intact. The sclerae are anicteric. Neuro: Cranial nerves intact Neck: Patient's neck is supple. He has palpable carotid pulses bilaterally without bruits on auscultation. There was mild jugular venous distention. The thyroid is not enlarged. Lungs: Lung exam reveals overall good air movement. Very few crackles in the bases bilaterally Cardiac: Heart demonstrates an irregular rate and rhythm. Normal S1 and S2. No murmurs on examination. Pulses: The patient has palpable radial pulses bilaterally that are equal in intensity Extremities: There was no evidence of hypoperfusion. There is no cyanosis or clubbing. He has mild bilateral peripheral edema in lower extremities. There was some trophic changes. Skin: I did not appreciate any rashes on examination today. He did have some ecchymoses Data Laboratory Results: Last 24 Hours Test 05/21/17 15:05 05/21/17 15:27 05/21/17 16:52 05/21/17 18:13 White Blood Count 5.91 K/uL Red Blood Count 5.30 M/uL Hemoglobin 17.5 g/dL Hematocrit 51.5 % Mean Corpuscular Volume 97.2 fL Mean Corpuscular Hemoglobin 33.0 pg Mean Corpuscular Hemoglobin Concent 34.0 g/dl Platelet Count 104 K/uL Mean Platelet Volume 10.7 fL Neutrophils (%) (Auto) 68.6 % Lymphocytes (%) (Auto) 18.6 % Monocytes (%) (Auto) 9.5 % Eosinophils (%) (Auto) 2.4 % Basophils (%) (Auto) 0.7 % Neutrophils # (Auto) 4.06 K/uL Lymphocytes # (Auto) 1.10 K/uL Monocytes # (Auto) 0.56 K/uL Eosinophils # (Auto) 0.14 K/uL Basophils # (Auto) 0.04 K/uL RDW Standard Deviation 47.5 fL RDW Coefficient of Variation 13.4 % Immature Granulocyte % (Auto) 0.2 % Immature Granulocyte # (Auto) 0.01 K/uL Sodium Level 140 mmol/L Potassium Level 4.7 mmol/L Chloride Level 109 mmol/L Carbon Dioxide Level 28 mmol/L Anion Gap 3.0 mmol/L Blood Urea Nitrogen 19 mg/dl Creatinine 1.10 mg/dl Est Creatinine Clear Calc Drug Dose 44.0 ml/min Estimated GFR () 68.6 Estimated GFR (Non- 59.2 BUN/Creatinine Ratio 16.9 Random Glucose 110 mg/dl Calcium Level 10.0 mg/dl Magnesium Level 2.3 mg/dl Total Bilirubin 1.1 mg/dl Aspartate Amino Transf (AST/SGOT) 37 U/L Alanine Aminotransferase (ALT/SGPT) 75 U/L Alkaline Phosphatase 91 U/L Total Creatine Kinase 41 U/L 32 U/L Creatine Kinase MB 1.3 ng/ml 1.2 ng/ml Creatine Kinase MB Ratio 3.2 3.8 Troponin I < 0.015 ng/ml < 0.015 ng/ml Pro-B-Type Natriuretic Peptide 3793 pg/ml Total Protein 7.2 gm/dl Albumin 3.9 gm/dl Globulin 3.3 gm/dl Albumin/Globulin Ratio 1.2 Bedside Lactic Acid Venous 0.85 mmol/L Activated Partial Thromboplast Time 26.0 SECONDS Partial Thromboplastin Ratio 1.0 Prothrombin Time 12.7 SECONDS Prothromb Time International Ratio 1.2 Thyroid Stimulating Hormone (TSH) 1.910 uIu/ml Thyroxine (T4) 5.7 mcg/dl Test 05/21/17 19:25 05/22/17 00:28 05/22/17 05:42 05/22/17 07:17 Urine Color YELLOW Urine Appearance CLEAR Urine pH 7.0 Urine Specific [place] 1.009 Urine Protein 1+ Urine Glucose (UA) NEG Urine Ketones NEG Urine Occult Blood NEG Urine Nitrite NEG Urine Bilirubin NEG Urine Urobilinogen NEG Urine Leukocyte Esterase NEG Urine WBC (Auto) 0 /hpf Urine RBC (Auto) 0-4 /hpf Urine Hyaline Casts (Auto) 0 /lpf Urine Epithelial Cells (Auto) 0-5 /lpf Urine Bacteria (Auto) NEG Total Creatine Kinase 37 U/L Creatine Kinase MB 1.1 ng/ml Creatine Kinase MB Ratio 3.0 Troponin I 0.025 ng/ml Chemistry Specimen Hemolysis White Blood Count 6.20 K/uL Red Blood Count 5.40 M/uL Hemoglobin 17.6 g/dL Hematocrit 51.3 % Mean Corpuscular Volume 95.0 fL Mean Corpuscular Hemoglobin 32.6 pg Mean Corpuscular Hemoglobin Concent 34.3 g/dl Platelet Count 107 K/uL Mean Platelet Volume 10.2 fL Neutrophils (%) (Auto) 69.1 % Lymphocytes (%) (Auto) 18.1 % Monocytes (%) (Auto) 9.4 % Eosinophils (%) (Auto) 2.3 % Basophils (%) (Auto) 0.6 % Neutrophils # (Auto) 4.29 K/uL Lymphocytes # (Auto) 1.12 K/uL Monocytes # (Auto) 0.58 K/uL Eosinophils # (Auto) 0.14 K/uL Basophils # (Auto) 0.04 K/uL RDW Standard Deviation 45.4 fL RDW Coefficient of Variation 13.2 % Immature Granulocyte % (Auto) 0.5 % Immature Granulocyte # (Auto) 0.03 K/uL Sodium Level 139 mmol/L Potassium Level mmol/L 3.8 mmol/L Chloride Level 108 mmol/L Carbon Dioxide Level 24 mmol/L Anion Gap 7.0 mmol/L Blood Urea Nitrogen 18 mg/dl Creatinine 1.10 mg/dl Est Creatinine Clear Calc Drug Dose 44.0 ml/min Estimated GFR () 68.6 Estimated GFR (Non- 59.2 BUN/Creatinine Ratio 16.1 Random Glucose 104 mg/dl Calcium Level 9.7 mg/dl Echocardiogram: Echocardiogram was performed this morning. Preserved LV systolic function without significant valvular heart disease. Pulmonary pressures were estimated to be normal EKG: EKG this morning revealed atrial flutter with slow ventricular response Telemetry reviewed: Patient's heart rates overall appear to be improving. He did have 1 4 second pause late last evening. Assessment and Plan 1. Dyspnea: Improved. His lung examination is also improved. He had a very aggressive diuresis over the course of the last 12 hours with a single dose of Lasix. I would be cautious with more diuretics although he may have good effect with a change to an oral regimen. With his notable bradycardia and symptoms on exertion there is also the possibility that he had an element of chronotropic incompetence. This may improve without atenolol. 2. Atrial flutter: Unclear duration. At this point would seem reasonable to start the patient on anticoagulation therapy in anticipation of a possible cardioversion or ablation in several weeks. He is certainly a candidate for warfarin and would also seem to be a reasonable candidate for a novel anticoagulant such as Xarelto 20 milligrams daily. 3. Bradycardia: Improving off of atenolol. This point I do not think he will require any immediate pacing. We will need to monitor his heart rates and symptoms when he is more active to see if he has adequate heart rate response. At some point we may elect to try a return to sinus rhythm and at that point he may have an element of bradycardia or chronotropic incompetence which would require pacing. 4. Coronary artery disease: Remote. No current symptoms to suggest coronary insufficiency or angina. Overall LV function appears to be preserved. No need for ischemic evaluation at this time. I will continue his aspirin and lipid agent. If anticoagulation is initiated aspirin can be stopped.
--- NOTE | 2017-05-22 18:17 | Progress Note ---
Progress Note Date of Service May 22, 2017. Progress Note 89-year-old male admitted through the emergency room with multiple problems including: * Profound bradycardia with a rate in the 30s * Atrial flutter * Known coronary artery disease * Arterial hypertension * Hypercholesterolemia Patient was admitted. He was seen in cardiology consultation by Dr. Howard Pfeiffer. He was hemodynamically stable. There was no indication for placement of a temporary pacemaker. He remained bradycardic through the night. This morning his heart rate was gradually increasing. During the night his blood pressure was elevated. He did receive an oral dose of amlodipine and an IV dose of hydralazine. His blood pressure improved. He was started on amlodipine this morning. He is feeling tired. Did not sleep well. He denied any headache or dizziness. No chest pain no shortness of breath. He diuresed very well with only 20 mg of IV Lasix. No abdominal pain no nausea no vomiting. He was urinating frequently because of the Lasix. Denied any pain in his back or extremities. EXAMINATION: Is well-developed. No distress. Vital signs: Blood pressure 148/75, pulse 60 and irregular, respiration 18, temperature 36.9, oxygen saturation 95% on room air. Skin is warm and dry. No rash. HEENT he was glasses. Has hearing aids. Upper dentures. Neck is supple without lymph node or thyroid enlargement. No JVD. Bilateral carotid bruit. Much more pronounced on the left side. Heart: Irregular heart sounds. 2/6 systolic murmur. Lungs are clear Abdomen is soft nontender without evident organomegaly or masses Back no evidence of any tenderness. Extremities resolved edema. No clubbing no cyanosis. Laboratory tests: WBC count 6200, hemoglobin 17.6, hematocrit 51.3, platelet count 462832 Sodium 139, potassium 3.8, chloride 108, CO2 24, BU and 18, creatinine 1.1, glucose 104, calcium 9.7. Cardiac enzymes were all normal. ASSESSMENT: * Atrial flutter with variable conduction * Profound bradycardia. Resolving. * Coronary artery disease * Congestive heart failure PLAN: * He was started on amlodipine 5 mg daily * Continue his medications * His echocardiogram was done. He has good ejection fraction. No evidence of any wall motion abnormalities. * We will hold off on any additional Lasix * We will continue monitoring his laboratory tests * I spoke with Dr. Kentrell this morning. He is recommending anticoagulation with Xarelto. Decide about cardioversion in the future. There is no indication of any pacemaker placement at this time.
[2017-05-22] MEDS: SIMVASTATIN 20 MG TAB PO SCH (20:25)
[2017-05-23 04:00] VITALS: BP_SYST 162; BP_SYST 164; BP_DIAS 82; BP_DIAS 88; PULSE 64; TEMP 36.8; O2SAT 96
[2017-05-23 06:11] LABS: BASO % 0.6 %; BASO ABS # 0.04 K/uL (0-0.2); COMPLETE YES; EOS % 2.4 %; HEMATOCRIT 50.2 % (42-52); IG% 0.1 %; LYMPH % 11.3 %; LYMPH ABS # 0.77 K/uL (1.2-3.4); MEAN CELL VOLUME 95.1 fL (80-100); MEAN CORPUSCULAR HEMOGLOBIN 33.1 pg (25-34); MEAN CORPUSCULAR HGB CONC 34.9 g/dl (32-36); MONO % 10.5 %; NEUT % 75.1 %; PLATELET COUNT 105 K/uL (130-400); RED BLOOD COUNT 5.28 M/uL (4.7-6.1); WHITE BLOOD COUNT 6.79 K/uL (4.8-10.8)
[2017-05-23 06:49] LABS: BUN/CREATININE RATIO 20.9 (10-20); CALCIUM 9.8 mg/dl (8.5-10.1); CREATININE 1.1 mg/dl (0.60-1.40); POTASSIUM 4.2 mmol/L (3.5-5.1)
[2017-05-23] MEDS ORDERED: NRV5 PO (07:03)
--- NOTE | 2017-05-23 07:08 | Discharge Instructions ---
Discharge Instructions Date of Service May 23, 2017. Admission Reason for Admission: Profound bradycardia Atrial flutter with variable conduction Coronary artery disease Congestive heart failure Enlargement of the prostate Discharge Discharge Diagnosis / Problem: profound bradycardia. Atrial flutter. Coronary artery disease. Congestiv Discharge Goals Goal(s): Decrease discomfort, Improve function, Increase independence, Improve disease control Activity Recommendations Activity Limitations: per Instructions/Follow-up section . Instructions / Follow-Up Instructions / Follow-Up Dr. Yeh in 1 week. Please call for appointment Dr. Pfeiffer in 2 weeks. Please call for appointment Be careful as far as your activity. Please do not drive until I see you in the office next week. Avoid any excessive physical activity. Current Hospital Diet Patient's current hospital diet: AHA Diet (Heart Healthy) Discharge Diet Recommended Diet: AHA Diet (Heart Healthy) Pending Studies Studies pending at discharge: no Laboratory Results Hemoglobin A1c Test 05/09/17 10:30 Range/Units Estimated Average Glucose 114 mg/dl Hemoglobin A1c 5.6 4.5-5.6 % Lipid Panel Test 05/09/17 10:30 Range/Units Triglycerides Level 75 0-150 mg/dl Cholesterol Level 116 0-200 mg/dl HDL Cholesterol 42 mg/dl LDL Cholesterol Direct 64 mg/dl Cholesterol/HDL Ratio 2.8 LDL Cholesterol, Calculated mg/dl Medical Emergencies . Who to Call and When: Medical Emergencies: If at any time you feel your situation is an emergency, please call 911 immediately. . Non-Emergent Contact Non-Emergency issues call your: Primary Care Provider . . "Provider Documentation" section prepared by Jonh Yeh. . VTE Core Measure Inpt VTE Proph given/why not?: Other Anticoagulation
[2017-05-23] MEDS ORDERED: RIVA1TAB4 PO (07:09)
[2017-05-23 07:53] VITALS: BP 156/74; PULSE 77; TEMP 36.5; O2SAT 95
[2017-05-23] MEDS: FINASTERIDE 5 MG TAB PO SCH (07:55)
[2017-05-23] MEDS: AMLODIPINE BESYLATE 5 MG TAB PO SCH (07:55)
[2017-05-23] MEDS: TAMSULOSIN HCL 0.4 MG CAP PO SCH (07:55)
[2017-05-23 08:21] VITALS: BP 156/74; PULSE 77; TEMP 36.5; O2SAT 95
[2017-05-23] MEDS ORDERED: RIVAROXABAN 20 MG TAB PO SCH (09:00)
--- NOTE | 2017-05-23 22:17 | Progress Note ---
Progress Note Date of Service May 23, 2017. Progress Note 89-year-old male admitted with : * new onset of atrial flutter with variable conduction * Profound bradycardia * Coronary artery disease * Hypercholesterolemia * Congestive heart failure Patient was admitted to PCU with telemetry. He was seen in cardiology consultation by Dr. Pfeiffer. His atenolol was discontinued. His ventricular response improved. Subsequently his heart rate was staying in the 60s and 50s. He was completely asymptomatic. His echocardiogram was unremarkable for any evidence of valve abnormality or any wall motion abnormality. His blood pressure was elevated. He was treated with amlodipine. He also received one dose of IV hydralazine. He was doing quite well. Denied any problems. No headache no dizziness. No lightheadedness. No chest pain no shortness of breath. He did have congestive heart failure on admission. He received one dose of IV Lasix only 20 mg and he had an excellent diuresis. EXAMINATION: GENERAL : Well developed. Well nourished. No acute distress. VITAL SIGNS ; Blood Pressure : 156/74, pulse 77, respiration 18, temperature 36.5, oxygen saturation 95% on room air SKIN : Warm and dry. No rash. HEENT :He wears glasses NECK : Supple. No lymph node or thyroid enlargement. No JVD. Normal carotid pulses. Bilateral carotid bruits. Much more pronounced on the left side HEART: Regular heart tones with 2/6 systolic murmur. No rub no gallop. LUNGS: Clear. Normal breath sounds. ABDOMEN: Soft nontender. No organomegaly or masses. Good bowel sounds. EXTREMITIES: Resolved edema in both ankles LABORATORY TESTS: WBC count 6709 8, hemoglobin 17.5, hematocrit 50.2, platelet count 10 5000. Sodium 141, potassium 4.2, chloride 110, CO2 24, BUN 23, creatinine 1.1, glucose 104, calcium 9.8. ASSESSMENT: * new onset of atrial flutter with variable ventricular conduction * Severe bradycardia * Arterial hypertension * Hypercholesterolemia PLAN: * patient was started on Xarelto 20 mg daily * He is continued on amlodipine 5 mg daily * His atenolol was discontinued * He was discharged home * Cardiology followup with Dr. Pfeiffer * Followup with me in the office in one week
--- NOTE | 2017-06-02 20:36 | Discharge Summary ---
Discharge Summary Date of Service Jun 02, 2017. Discharge Summary ADMISSION DATE: 05/21/2017 DISCHARGE DATE: 05/23/2017 DISCHARGE DIAGNOSES: * profound bradycardia * Atrial flutter with variable ventricular conduction * Coronary artery disease * Congestive heart failure * Prostate hyperplasia DISCHARGE MEDICATIONS: * amlodipine 5 mg daily * Xarelto 20 mg daily * Finasteride 5 mg daily * MiraLax 17 g daily * Simvastatin 20 mg daily * Tamsulosin 0.4 mg daily CONSULTATION: * Dr. Howard Pfeiffer in cardiology 89-year-old male admitted through the emergency room with atrial flutter with variable ventricular conduction and profound bradycardia with a ventricular rate in the 30s. he was also complaining of shortness of breath. Patient with known coronary artery disease, he is status post four-vessel coronary artery bypass graft back in 1997 with MEDRANO to LAD and saphenous vein graft from the aorta to the posterior descending artery, first circumflex marginal, and diagonal branch. He is also treated for arterial hypertension, hypercholesterolemia, has known carotid artery disease which has not required any intervention. Patient stopped in the office with his daughter. He was complaining of shortness of breath. He had no chest pain. He was ambulating. Recommended that his daughter brings him to the emergency room. On arrival he was evaluated. He was noted to be in atrial flutter. His ventricular response was in the 30s. He remained awake and alert. His blood pressure was elevated. He had no chest pain. No shortness of breath at rest. His shortness of breath was mostly with activity. No diaphoresis. No nausea or any other associated symptoms. I saw the patient in the emergency room and he was admitted to PCU with telemetry. I also spoke with Dr. Pfeiffer and requested the consultation. PAST MEDICAL HISTORY, SOCIAL HISTORY, FAMILY HISTORY: As noted on admission history and physical ALLERGIES:NONE ADMISSION MEDICATIONS: As noted on the home medication list PHYSICAL EXAMINATION AND LABORATORY TESTS ARE NOTED ON ADMISSION HITORY AND PHYSICAL HOSPITAL COURSE: Patient was admitted to PCU with telemetry. Resuscitation level I. Cardiology consultation was requested. He was given one dose of IV Lasix for gentle diuresis. All his laboratory tests were ordered. Cardiac isoenzymes were ordered. Echocardiogram was also ordered. Patient was seen by Dr. Pfeiffer. Given the fact that his condition was stable. There was no evidence of any hemodynamic compromise. Dr. Pfeiffer did not feel that the patient needs a temporary pacer. Prior to his admission he was on atenolol 50 mg daily. This medication was discontinued. Cardiac isoenzymes were negative for any evidence of myocardial infarction. His echocardiogram showed mild asymmetric left ventricular hypertrophy. Left ventricular systolic function was normal. His ejection fraction was over 70%. His right ventricular systolic function was borderline reduced. Right ventricular systolic pressure was normal. With the discontinuation of his atenolol his ventricular response increased. It remained in a good range. Up to the 60s and 70s. He remained in atrial flutter. He diuresed very well with only one dose of 20 mg of IV Lasix. His condition improved. The plan was to monitor his condition. Dr. Pfeiffer started him on Xarelto. Anticipating possible cardioversion. Patient was discharged home. Followup with Dr. Pfeiffer. Followup with me in the office one week after his discharge.
== END 2017-05-23 09:27 | disposition home or self-care (01) | DRG 310 ==
LOC: C.EDB 14:29 → C.2T 16:53 → ENRESERV 17:02
PROVIDERS: ADMIT Internal Medicine; ATTEND Internal Medicine
DX: R00.1 Bradycardia, unspecified (principal); I48.92 Unspecified atrial flutter; R06.00 Dyspnea, unspecified; R60.0 Localized edema; I25.10 Atherosclerotic heart disease of native coronary artery without angina pectoris; I11.0 Hypertensive heart disease with heart failure; I50.9 Heart failure, unspecified; E78.00 Pure hypercholesterolemia, unspecified; N40.0 Benign prostatic hyperplasia without lower urinary tract symptoms; Z95.1 Presence of aortocoronary bypass graft; Z87.891 Personal history of nicotine dependence; Z79.899 Other long term (current) drug therapy

== ENCOUNTER → 2017-07-11 | Outpatient (CLI) | payer OTHER, BC ==
[~2017-07-11] MED LIST changes: -ATEN50TA PO; -BISA-16 PO; -FINA5TAB4 PO; +FLM4 PO; +MRLP527 PO; +NRV5 PO; +PRS5 PO; +RIVA1TAB4 PO; +SIMV-151 PO; -SIMV20TA5 PO; -TAMS0.4C59 PO
[2017-07-11 13:28] LABS: ESTIMATED AVERAGE GLUCOSE 111 mg/dl; HA1C FLAG Normal (Normal)
[2017-07-11 13:34] LABS: BLOOD UREA NITROGEN 18 mg/dl (7-18); BUN/CREATININE RATIO 15.9 (10-20); CALCIUM 10.2 mg/dl (8.5-10.1); CARBON DIOXIDE 26 mmol/L (21-32); CHLORIDE 107 mmol/L (98-107); GLUCOSE 102 mg/dl (70-99); POTASSIUM 3.9 mmol/L (3.5-5.1); SODIUM 140 mmol/L (136-145)
[2017-07-11 13:37] LABS: CHOLESTEROL 142 mg/dl (0-200); CHOLESTEROL/HDL RATIO 2.7; HDL CHOLESTEROL 53 mg/dl; TRIGLYCERIDES 60 mg/dl (0-150); VERY LOW DENSITY LIPOPROT CALC 12 mg/dl
== END | disposition home or self-care (01) ==
LOC: C.LABSPEC 12:33
PROVIDERS: ATTEND Internal Medicine
DX: Z00.00 Encounter for general adult medical examination without abnormal findings (principal); E78.5 Hyperlipidemia, unspecified; R73.9 Hyperglycemia, unspecified; I25.10 Atherosclerotic heart disease of native coronary artery without angina pectoris

== ENCOUNTER → 2017-09-04 | Outpatient (CLI) | payer OTHER, BC ==
[~2017-09-04] MED LIST changes: +DIPH25CA5 PO; +FURO-85 PO; +LDXCR60 EXT; +LOSA1TAB PO; +METO25TA56 PO; +POTA10CA28 PO; +TNR25 PO
[2017-09-04 17:31] LABS: HEMATOCRIT 51.2 % (42-52); MEAN CELL VOLUME 95.5 fL (80-100); MEAN CORPUSCULAR HEMOGLOBIN 32.3 pg (25-34); MEAN CORPUSCULAR HGB CONC 33.8 g/dl (32-36); MEAN PLATELET VOLUME 10.5 fL (7.4-10.4); PLATELET COUNT 126 K/uL (130-400); RED BLOOD COUNT 5.36 M/uL (4.7-6.1); WHITE BLOOD COUNT 6.19 K/uL (4.8-10.8)
[2017-09-04 17:40] LABS: INR 1.2 (0.9-1.1); PARTIAL THROMBOPLASTIN RATIO 1.2; PROTHROMBIN TIME (PATIENT) 13.4 SECONDS (9.0-12.0)
[2017-09-04 17:55] LABS: BLOOD UREA NITROGEN 22 mg/dl (7-18); BUN/CREATININE RATIO 20.9 (10-20); CALCIUM 10.1 mg/dl (8.5-10.1); CARBON DIOXIDE 30 mmol/L (21-32); CHLORIDE 104 mmol/L (98-107); CREATININE 1.06 mg/dl (0.60-1.40); GLUCOSE 101 mg/dl (70-99); POTASSIUM 4.2 mmol/L (3.5-5.1); SODIUM 139 mmol/L (136-145)
== END | disposition home or self-care (01) ==
LOC: C.LAB1850 16:27
PROVIDERS: ATTEND Internal Medicine Clinical Cardiac Electrophysiology
DX: K59.00 Constipation, unspecified (principal); R06.00 Dyspnea, unspecified; E78.00 Pure hypercholesterolemia, unspecified

== ENCOUNTER 2017-09-05 09:56 | Observation (INO) | payer OTHER, BC ==
[~2017-09-05] VITALS: Ht 171.4 cm; Wt 67.9 kg
[~2017-09-05 09:56] MED LIST changes: +CEFAZOLIN 1000MG IV PUSH 5 ML IV SCH; -DIPH25CA5 PO; -FURO-85 PO; +LACTATED RINGER'S 1000ML IV SCH; -LDXCR60 EXT; -LOSA1TAB PO; -METO25TA56 PO; -POTA10CA28 PO; -TNR25 PO
[2017-09-05] MEDS ORDERED: RIVA1TAB4 PO (10:25)
[2017-09-05] MEDS ORDERED: POTA10CA28 PO (10:25)
[2017-09-05] MEDS ORDERED: FURO-85 PO (10:25)
[2017-09-05] MEDS ORDERED: METO25TA56 PO (10:25)
[2017-09-05 10:28] VITALS: BP 204/112; PULSE 80; TEMP 36.5; O2SAT 94; Ht 171.4 cm; Wt 67.9 kg
[2017-09-05] MEDS ORDERED: LIDOCAINE HCL 1% 20 ML VIAL ONE (11:08)
[2017-09-05] MEDS ORDERED: BUPIVACAINE 0.5 % 5 MG/1 ML MPF 30ML VIAL ONE (11:08)
[2017-09-05] MEDS ORDERED: BACITRACIN 50000 UNIT VIAL ONE (11:08)
[2017-09-05] MEDS ORDERED: FENTANYL CITRATE INJ 50 MCG/1 ML 2 ML VIAL ONE (11:09)
[2017-09-05] MEDS ORDERED: MIDAZOLAM HCL 5 MG/ML 1 ML VIAL ONE (11:09)
--- NOTE | 2017-09-05 11:12 | Procedure Note ---
Pre-Mod Sedation Assessment General Date of Moderate Sedation: Sep 05, 2017. Vital Signs: Vital Signs Past 12 Hours Date Time Temp Pulse Resp B/P (MAP) Pulse Ox O2 Delivery O2 Flow Rate FiO2 09/05/17 10:28 36.5 80 20 204/112 (142) 94 Room Air Review Airway Class: II Pre-Sedation Airway Assessment Oral Cavity: Dentures Able to Visualize Vocal Cords: No Short Thick Neck: No Hx of Sleep Apnea: No Smoking Status: Former Smoker Mallampati Classification: Class II Procedure Planning Contraindications-for Mod Sed: None Yes Notes The planned sedation has been discussed with the patient and consent obtained. I have identified the patient, determined the appropriateness of sedation and have assessed the patient immediately prior to the procedure. All medicine(s) and interventions are by my order.
[2017-09-05] MEDS ORDERED: ACETAMINOPHEN 325 MG TAB PO PRN (12:00)
[2017-09-05] MEDS ORDERED: OXYCODONE HCL IR 5 MG TAB (IMMEDIATE RELEASE) PO PRN (12:00)
--- NOTE | 2017-09-05 12:00 | [facility] Operative Report ---
Operative Report Date of Service Sep 05, 2017. Operative Report Procedure performed: Implantation of dual-chamber permanent pacemaker Staff building cleaner: Howard Pfeiffer MD Indication: The patient is an 89-year-old gentleman with a history of persistent atrial flutter and slow heart rates. In the past he had his rate control agents discontinued due to symptomatic bradycardia. More recently has had episodes of tachycardia due to the presence of both low and fast heart rates in atrial flutter is felt to be a good candidate for permanent pacing due to symptomatic non reversible AV node dysfunction. Dual-chamber device was selected as the patient is likely to be cardioverted in the future and we wish to maintain AV synchrony. Procedure in detail: The patient was informed of the risks benefits and alternatives to the intended procedure and he wished to proceed. He was taken to the electrophysiology suite in a fasting state. A preoperative antibiotic had been administered. The patient was monitored electrocardiographically throughout today's procedure and conscious sedation was administered per protocol. The left upper pectoral area is prepped and draped in usual sterile fashion. This area was anesthetized using subcutaneous menstruation of a xylocaine solution. An incision was made at this site and carried down to the prepectoralis fascia using sharp dissection. Electrocautery was also employed for dissection as well as for hemostasis. A device pocket was fashioned tissues above the pectoralis muscle. Subsequent to this maneuver the left axillary vein was accessed using modified Seldinger technique. Sheaths were placed over guidewires at this site and used to facilitate passage of the pacing leads to the respective chambers under fluoroscopic guidance. This included right atrial and right ventricular leads. Adequate sensing and threshold parameters were obtained prior to Active fixation of the leads to the endocardial surface. The proximal portion leads were then sutured the prepectoral fascia using nonabsorbable suture. The device pocket was irrigated with antibiotic solution. The leads were then attached to the device. The device and leads were then placed in the pocket and pocket was closed in 3 layers of absorbable suture. Steri-Strips and sterile dressing were applied. The device was tested noninvasively prior to conclusion the procedure. The patient tolerated procedure well there no immediate complications. Equipment used: New pulse generator: Scalemaker [employer]. Model number: [id number] serial number [id number] Right atrial lead: Scalemaker Medtronic. Model number: [id number] serial number [id number] Right ventricular lead: Scalemaker Medtronic. Model number: [id number] serial number [id number] Measured data: Right atrial lead: Flutter waves measured 1.4 millivolts, pacing threshold could not be obtained but the impedance was 494 Ohms Right ventricular lead: R-waves measured 15.4 millivolts. Pacing threshold 0.5 volts at 0.4 milliseconds with a pacing impedance of 551 Ohms Impression: Successful implantation of dual-chamber permanent pacemaker I attest to the content of the Intraoperative Record and any orders documented therein. Any exceptions are noted below.
[2017-09-05 12:30] VITALS: BP 164/80; PULSE 62; TEMP 36.4; O2SAT 94
[2017-09-05] MEDS ORDERED: METOPROLOL TARTRATE 25 MG TAB PO SCH (12:45)
[2017-09-05] MEDS ORDERED: IV FLUIDS COMPLETED PRN (14:00)
[2017-09-05] MEDS ORDERED: NURSING VERBAL MED ORDER ONE (15:00)
[2017-09-05] MEDS ORDERED: DiphenhydrAMINE HCL 50 MG/ML VIAL ONE (15:25)
[2017-09-05] MEDS ORDERED: DiphenhydrAMINE HCL 50 MG/ML VIAL IV STA (15:25)
[2017-09-05 16:03] VITALS: BP 167/93; PULSE 70; TEMP 36.6; O2SAT 95
[2017-09-05] MEDS ORDERED: FLUOCINONIDE 0.05% CR 15 GM TUBE EXT PRN (17:15)
[2017-09-05] MEDS ORDERED: CEFAZOLIN IV 1,000 MG in SYRINGE 0 ML IV SCH (18:00)
[2017-09-05 19:40] VITALS: BP 154/84; PULSE 61; TEMP 36.5; O2SAT 97
[2017-09-05] MEDS: CLINDAMYCIN IV 300 MG in DEXTROSE 5% 50ML 50 ML IV SCH (20:23)
[2017-09-05] MEDS ORDERED: SIMVASTATIN 20 MG TAB PO SCH (21:00)
[2017-09-05 23:01] VITALS: BP 165/84; PULSE 61; TEMP 37.5; O2SAT 96
[2017-09-06] MEDS: CLINDAMYCIN IV 300 MG in DEXTROSE 5% 50ML 50 ML IV SCH (03:15)
[2017-09-06 04:00] VITALS: BP 153/78; PULSE 60; TEMP 36.9; O2SAT 97
--- NOTE | 2017-09-06 06:52 | DIAGNOSTIC IMAGING REPORT ---
CHEST 2 VIEWS ROUTINE HISTORY: 89 years-old Male EXACT TIME ORDERED Evaluate for pneumothorax and lead placement status post placement of a left pectoral pacer. COMPARISON: Chest radiograph 05/21/2017 TECHNIQUE: 2 views of the chest FINDINGS: Moderate enlargement of the cardiac silhouette redemonstrated. Prior median sternotomy. Atherosclerosis of the aorta. The lead left pectoral pacer has been placed in the interval with leads overlying the right atrium and right ventricle. No postprocedural pneumothorax identified. Chronic blunting of the bilateral costophrenic angles redemonstrated. Patchy left greater than right bibasilar opacities are also noted. Bones are grossly intact. IMPRESSION: 1. Status post placement of a left pectoral pacer without postprocedural pneumothorax. 2. Cardiomegaly with unchanged blunting of the costophrenic angles with patchy bibasilar opacities suggesting atelectasis/scarring. Trace effusions may also be present. The above report was generated using voice recognition software. It may contain grammatical, syntax or spelling errors. Electronically signed by: He Ramos M.D. 09/06/2017 6:50 AM Dictated Date/Time: 09/06/2017 6:48 AM
[2017-09-06] MEDS ORDERED: LDXCR60 EXT (07:47)
[2017-09-06] MEDS ORDERED: DIPH25CA5 PO (07:47)
--- NOTE | 2017-09-06 07:52 | Discharge Instructions ---
Discharge Instructions Date of Service Sep 06, 2017. Admission Reason for Admission: Atrial Flutter Discharge Discharge Diagnosis / Problem: Tachy-freda syndrome Discharge Goals Goal(s): Improve function Activity Recommendations Activity Limitations: as noted below Lifting Limitations: none Exercise/Sports Limitations: gradually increase as tolerated Shower/Bathe: keep incision dry Driving or Machine Use: resume 1 day after discharge Keep the wound dry and Steri-Strips intact until follow-up in the cardiology clinic next week. No lifting left arm above shoulder or behind neck for 6 weeks. . Instructions / Follow-Up Instructions / Follow-Up Follow[facility]up in the [facility] cardiology clinic for wound check as previously scheduled Current Hospital Diet Patient's current hospital diet: AHA Diet (Heart Healthy) Discharge Diet Recommended Diet: AHA Diet (Heart Healthy) Procedures Procedures Performed: Insertion of Medtronic dual-chamber pacemaker Pending Studies Studies pending at discharge: no Laboratory Results Hemoglobin A1c Test 07/11/17 08:30 Range/Units Estimated Average Glucose 111 mg/dl Hemoglobin A1c 5.5 4.5-5.6 % Lipid Panel Test 07/11/17 08:30 Range/Units Triglycerides Level 60 0-150 mg/dl Cholesterol Level 142 0-200 mg/dl HDL Cholesterol 53 mg/dl LDL Cholesterol Direct 84 mg/dl Cholesterol/HDL Ratio 2.7 LDL Cholesterol, Calculated mg/dl Medical Emergencies . Who to Call and When: Medical Emergencies: If at any time you feel your situation is an emergency, please call 911 immediately. . Non-Emergent Contact Non-Emergency issues call your: Neuro Ophthalmologist Call Non-Emergent contact if: you have a fever, your pain is worsening, your pain is concerning you, wound has increased drainage, wound has increased redness, wound has increased pain, you have any medication questions . . "Provider Documentation" section prepared by Tushar Pfeiffer. . VTE Core Measure Inpt VTE Proph given/why not?: Treatment not indicated
[2017-09-06 07:57] VITALS: BP_SYST 154; BP_SYST 190; BP_DIAS 72; BP_DIAS 96; PULSE 87; TEMP 36.7; TEMP 37; O2SAT 96
[2017-09-06] MEDS ORDERED: RIVA1TAB4 PO ×2 (07:59→08:01)
[2017-09-06] MEDS ORDERED: TNR25 PO (07:59)
[2017-09-06] MEDS ORDERED: LOSA1TAB PO (07:59)
[2017-09-06 08:27] VITALS: BP 165/94; PULSE 87; TEMP 36.7; O2SAT 96
[2017-09-06] MEDS ORDERED: AMLODIPINE BESYLATE 5 MG TAB PO SCH (09:00)
[2017-09-06] MEDS ORDERED: TAMSULOSIN HCL 0.4 MG CAP PO SCH (09:00)
[2017-09-06] MEDS ORDERED: FINASTERIDE 5 MG TAB PO SCH (09:00)
[2017-09-06] MEDS ORDERED: POTASSIUM CHLORIDE 10 MEQ TABCR PO SCH (09:00)
[2017-09-06] MEDS ORDERED: FUROSEMIDE 20 MG TAB PO SCH (09:00)
--- NOTE | 2017-09-06 10:50 | Discharge Summary ---
Discharge Summary Admission Date: Sep 05, 2017 at 12:03 Discharge Date: Sep 06, 2017 Discharge Disposition: Home Primary Diagnosis: Tachy-freda syndrome Secondary Diagnoses/Problems: Medical Problems: (1) Bradycardia Status: Acute (2) New onset atrial flutter Status: Acute (3) SOB (shortness of breath) Status: Acute Surgical Problems: (1) Hx of CABG Status: Resolved Procedures: Implantation of Medtronic dual-chamber pacemaker on 09/05/2017 Discharge Instructions Last Recorded Wt (Kilograms): 67.900 Activity Recommendations: limitations as noted below Return to School/Work: no limitations Diet At Discharge: resume previous diet Allergies: Coded Allergies: Cefazolin (Verified Allergy, Unknown, RASH, 09/05/17) ITCHING/RASH Discharge Medications: Patient was switch from metoprolol to atenolol over concerns regarding drug rash Home Health Services: none Special Care: Call your doctor if: * Temperature above 101 degrees * Pain not relieved by pain medicine ordered * There is increased drainage or redness from any incision * You have any unanswered questions or concerns. Avoid all tobacco products. If you need help to stop smoking, call [place]'s FREE QUITLINE at . This is a free call. Admission HPI Patient is an 89-year-old gentleman with history of atrial flutter and so ventricular response. He had previously been admitted due to concerns over bradycardia and had his beta blockers discontinued. He presented to his primary care physician's office with atrial flutter and tachycardia. He was therefore started back on beta-blockers referred for pacemaker in order to treat tachy-freda syndrome. Admission Physical Exam Additional Comments: Patient continues to have a macular cutaneous rash. This is improved from yesterday. Device implant site appears to be healing well. There is no hematoma or drainage. Hospital Course The patient was admitted and underwent dual-chamber pacemaker implant on the day of admission. The procedure itself was uncomplicated. Later in the evening he was noted by the nursing staff to a developed a widespread macular rash. This was pruritic in nature. The patient was administered antihistamines and topical steroid cream for symptomatic relief. Suspicion was that this was related to sepsis old administration. This allergy was added to his medical record and no additional doses of cefazolin were administered. The following morning the patient states that he was feeling better. He continued to have a rash but it seemed slightly improved. A device interrogation revealed normal function of dual-chamber pacemaker. Chest x-ray obtained on the day of discharge revealed adequate lead placement without evidence of complication. Patient's rhythm throughout his hospitalization was atrial flutter and controlled ventricular response. Due to concerns over a medication rash his metoprolol was also switched to atenolol. The patient's anticoagulation was interrupted briefly to facilitate this procedure but should be restarted on September 08. This is Xarelto 20 mg daily. The patient is currently in atrial flutter and after a few weeks could be referred for cardioversion now that the pacemaker is in place. Total time spent on discharge = This includes examination of the patient, discharge planning, medication reconciliation, and communication with other providers.
== END 2017-09-06 09:30 | disposition home or self-care (01) ==
LOC: C.ACU 09:56 → ENRESERV 11:41 → C.2T 12:03
PROVIDERS: ADMIT Internal Medicine Clinical Cardiac Electrophysiology; ATTEND Internal Medicine Clinical Cardiac Electrophysiology
DX: I49.5 Sick sinus syndrome (principal); I48.92 Unspecified atrial flutter; I25.10 Atherosclerotic heart disease of native coronary artery without angina pectoris; I11.0 Hypertensive heart disease with heart failure; I50.9 Heart failure, unspecified; E78.00 Pure hypercholesterolemia, unspecified; N40.1 Benign prostatic hyperplasia with lower urinary tract symptoms; N13.8 Other obstructive and reflux uropathy; Z87.891 Personal history of nicotine dependence; Z95.1 Presence of aortocoronary bypass graft; Z82.49 Family history of ischemic heart disease and other diseases of the circulatory system